=== PATIENT | female | born 1990 | race African-American/Black ===

== ENCOUNTER 2020-01-29 18:40 | Emergency (ER) | payer SELFPAY ==
[~2020-01-29] VITALS: Ht 167.6 cm; Wt 108.9 kg
[2020-01-29 18:47] VITALS: BP 121/67
[2020-01-29] MEDS ORDERED: cefTRIAXone 250 MG VIAL ONE (19:49)
[2020-01-29] MEDS ORDERED: LIDOCAINE MPF 1% 5 ML ONE (19:49)
[2020-01-29] MEDS: AZITHROMYCIN 250 MG TAB PO ONE (19:55)
[2020-01-29] MEDS: cefTRIAXone 250 MG in LIDOCAINE MPF 1% 0.9 ML IM ONE (20:04)
[2020-01-29 20:37] LABS: APPEARANCE,URINE CLEAR (CLEAR); BILIRUBIN,URINE NEGATIVE (NEGATIVE); BLOOD, URINE TRACE-I (NEGATIVE); LEUKOCYTE ESTERASE ,URINE TRACE (NEGATIVE); NITRITE, URINE NEGATIVE (NEGATIVE); UGLUCOSE NEGATIVE (NEGATIVE)
[2020-01-29 20:42] LABS: COLOR,URINE STRAW (YELLOW)
[2020-01-29 21:03] LABS: WBC,URINE 0-5 /HPF (0-5)
[2020-01-29 21:50] VITALS: BP 122/69
[2020-02-01 06:06] LABS: CHLAMYDIA TRACHOMATIS AMP DNA Negative (Negative)
== END 2020-01-29 21:50 | disposition home or self-care (01) ==
LOC: MED 18:40
DX: R21 Rash and other nonspecific skin eruption (principal); Z11.3 Encounter for screening for infections with a predominantly sexual mode of transmission
CPT/HCPCS: 36415; 81001; 81025; 86703; 96372; 99283; J0696; J2001; 87491